=== PATIENT | female | born 1990 | race Caucasian/White ===

== ENCOUNTER 2017-11-02 20:53 | Emergency (ER) | payer OTHER ==
[~2017-11-02] VITALS: Ht 160 cm; Wt 93.5 kg
[~2017-11-02 20:53] MED LIST: EXPECTA PRENAT1 EACH PO; IBUPROFEN800 MG PO; PROBIOTIC1 EAC1 PO
[2017-11-02 21:32] LABS: HEMATOCRIT 41.5 % (36.0-46.0); HEMOGLOBIN 14.7 G/DL (11.9-15.5); MCHC 35.4 G/DL (30.0-36.0); MCV 90.2 FL (83-99); PLATELET COUNT 291 K/uL (156-360); RBC DIS.WIDTH-CV 11.9 % (11.8-14.6); RBC DIS.WIDTH-SD 38.4 % (39-53); WHITE BLOOD COUNT 10.6 K/uL (4.1-10.2)
[2017-11-02 21:40] LABS: ALBUMIN 4.4 g/dL (3.2-4.8); CHLORIDE 111 mEq/L (99-109); POTASSIUM 3.6 mEq/L (3.7-5.4); SODIUM 141 mEq/L (136-147)
[2017-11-02 21:42] LABS: GLUCOSE 95 mg/dL (70-99); TOTAL PROTEIN 7.7 g/dL (6.4-8.3)
[2017-11-02 21:44] LABS: TOTAL BILIRUBIN 0.7 mg/dL (0.0-1.0)
[2017-11-02 21:46] LABS: ALKALINE PHOSPHATASE 95 IU/L (3-129); CREATININE 0.8 mg/dL (0.6-1.3); GFR ESTIMATE (CALCULATED) > 59 mL/min/
[2017-11-02 21:47] LABS: UREA NITROGEN (BUN) 8 mg/dL (9-23)
[2017-11-02 21:48] LABS: AST (GOT) 25 IU/L (2-34)
[2017-11-02 21:49] LABS: ALT (GPT) 35 IU/L (3-49); LIPASE 7 U/L (1.0-51.0)
[2017-11-02 21:53] LABS: APPEARANCE CLOUDY ((CLEAR)); BILIRUBIN NEGATIVE; BLOOD NEGATIVE; COLOR AMBER ((YELLOW)); GLUCOSE (STRIP) NEGATIVE; KETONES 80; LEUKOCYTES MODERATE; NITRITE NEGATIVE; PROTEIN (STRIP) 30; SPECIFIC GRAVITY 1.033 (1.000-1.030); UROBILINOGEN 0.2 MG/DL (0.2-1.0)
[2017-11-02 21:59] LABS: QUANTITATIVE HCG < 4.0 MIU/ML
[2017-11-02 22:21] LABS: RED BLOOD CELLS NONE SEEN /HPF (0-5)
[2017-11-02 22:22] LABS: BACTERIA 3+ /HPF; EPITHELIAL CELLS 4+ /HPF; MUCUS 4+ /LPF; UCUL ADDED? YES
[2017-11-02 22:37] LABS: TROP-I INTERPRETATION NEGATIVE; TROPONIN-I 0.02 ng/mL (0.0-0.30)
[2017-11-03] MEDS ORDERED: BENTYL20 MG PO (00:33)
[2017-11-03] MEDS ORDERED: ZOFRAN4 MG PO (00:33)
[2017-11-03 01:52] LABS: TROP-I INTERPRETATION NEGATIVE; TROPONIN-I < 0.01 ng/mL (0.0-0.30)
[2017-11-03 01:57] VITALS: BP 129/79
== END 2017-11-03 01:59 | disposition home or self-care (01) ==
LOC: EME 20:53
PROVIDERS: Nurse Practitioner Family
DX: R10.13 Epigastric pain (principal); R11.2 Nausea with vomiting, unspecified; Z90.49 Acquired absence of other specified parts of digestive tract
CPT/HCPCS: 74177; 80053; 81003; 83690; 84484; 84702; 85027; 87086; 93005; 99281; 99285; J1885; J2405

== ENCOUNTER 2017-12-13 12:36 | Emergency (ER) | payer OTHER ==
[~2017-12-13] VITALS: Ht 160 cm; Wt 93.1 kg
[~2017-12-13 12:36] MED LIST changes: +BENTYL20 MG PO; +ZOFRAN4 MG PO
[2017-12-13 13:23] LABS: HEMATOCRIT 42.3 % (36.0-46.0); HEMOGLOBIN 15.1 G/DL (11.9-15.5); MCH 32.3 PG (29.0-34.0); MCHC 35.7 G/DL (30.0-36.0); MCV 90.4 FL (83-99); PLATELET COUNT 383 K/uL (156-360); RBC DIS.WIDTH-CV 11.7 % (11.8-14.6); RBC DIS.WIDTH-SD 38.4 % (39-53); RED BLOOD COUNT 4.68 M/uL (3.80-5.20)
[2017-12-13 13:32] LABS: ALBUMIN 4.7 g/dL (3.2-4.8); CHLORIDE 108 mEq/L (99-109); POTASSIUM 3.8 mEq/L (3.7-5.4); SODIUM 143 mEq/L (136-147)
[2017-12-13 13:34] LABS: GLUCOSE 165 mg/dL (70-99); TOTAL PROTEIN 8.1 g/dL (6.4-8.3)
[2017-12-13 13:38] LABS: ALKALINE PHOSPHATASE 109 IU/L (3-129); CREATININE 0.8 mg/dL (0.6-1.3); GFR ESTIMATE (CALCULATED) > 59 mL/min/
[2017-12-13 13:39] LABS: UREA NITROGEN (BUN) 10 mg/dL (9-23)
[2017-12-13 13:40] LABS: AST (GOT) 23 IU/L (2-34)
[2017-12-13 13:41] LABS: ALT (GPT) 37 IU/L (3-49)
[2017-12-13 13:48] LABS: QUANTITATIVE HCG < 4.0 MIU/ML
[2017-12-13 17:52] LABS: APPEARANCE CLOUDY ((CLEAR)); BILIRUBIN NEGATIVE; BLOOD NEGATIVE; COLOR YELLOW ((YELLOW)); GLUCOSE (STRIP) NEGATIVE; KETONES 80; LEUKOCYTES SMALL; NITRITE NEGATIVE; PROTEIN (STRIP) 100; UROBILINOGEN 0.2 MG/DL (0.2-1.0)
[2017-12-13] MEDS ORDERED: ZOFRAN ODT4 MG PO (18:32)
[2017-12-13] MEDS ORDERED: MACROBID100 MG PO (18:32)
[2017-12-13] MEDS ORDERED: BENTYL20 MG PO (18:32)
[2017-12-13 18:40] VITALS: BP 120/75
[2017-12-13 18:55] LABS: EPITHELIAL CELLS 2+ /HPF; MUCUS 2+ /LPF; RED BLOOD CELLS 0-5 /HPF (0-5); UCUL ADDED? YES
[2017-12-13 18:56] LABS: BACTERIA 2+ /HPF
== END 2017-12-13 18:40 | disposition home or self-care (01) ==
LOC: EME 12:36
DX: N39.0 Urinary tract infection, site not specified (principal); K21.9 Gastro-esophageal reflux disease without esophagitis
CPT/HCPCS: 80053; 81003; 84702; 85027; 87086; 99281; 99283